=== PATIENT | female | born 1965 | race Caucasian/White ===

== ENCOUNTER 2019-11-11 15:21 | Emergency (ER) | payer MEDICAID ==
[~2019-11-11] VITALS: Ht 162.6 cm; Wt 59.0 kg
[2019-11-11 17:08] VITALS: BP 133/88
[2019-11-11] MEDS ORDERED: KETOROLAC 60MG/2ML VIAL IM ONE (17:15)
== END 2019-11-11 18:12 | disposition home or self-care (01) ==
LOC: ER 15:21
DX: M54.5 Low back pain (principal); F32.9 Major depressive disorder, single episode, unspecified
CPT/HCPCS: 96372; 99283; J1885; Z7610